=== PATIENT | female | born 1975 | race Caucasian/White ===

== ENCOUNTER 2025-01-28 12:15 | Outpatient (CLI) | payer BC, SELFPAY ==
--- NOTE | ~2025-01-28 | MM_ITS ---
EXAMINATION: MM screening сергей BI w dennis HISTORY: Screening TECHNIQUE: Craniocaudal and mediolateral oblique 3-D tomosynthesis images were obtained and synthetic 2-D images were generated. CAD analysis was submitted and interpreted. COMPARISON: No prior mammogram is available for comparison at this institution. BREAST PARENCHYMAL COMPOSITION: Not dense: There are scattered areas of fibroglandular density. FINDINGS: There are 2 adjacent low-density masses in the upper outer quadrant of the right breast, middle third, likely benign. Recommend comparison to previous outside mammograms. There are no suspicious calcifications or architectural distortion. IMPRESSION: 1. Right breast masses, upper outer quadrant. 2. Recommend comparison to outside mammograms. BI-RADS Category 0: Incomplete: Needs additional imaging evaluation. Reviewed, dictated and finalized at location B.
--- OUTSIDE RECORDS SUMMARY | 2025-01-28 12:19 | XMS_ITS | Clinical Summary ---
Author Organization [facility] Address [address] [place] [address] Phone Care Team Providers Care Director Of Adult Epilepsy Name Role Phone Canelo Wilton Lay DO Primary Care Provider [phone] Allergies Active Allergy Reactions Criticality Noted Date Comments Sulfa (Sulfonamide Antibiotics) Itching Low 02/26 Medications acetaminophen (TYLENOL) 325 mg tablet Take 2 Tablets (650 mg) by mouth every 6 hours as needed for Other (See Comment) (See admin instructions). 4 Active magnesium oxide 400 mg magnesium Tablet Take 1 Tablet by mouth daily. 4 Active Additional Information Patient not taking.Reported on 11/12/2024 losartan (COZAAR) 25 mg tablet Take 1 Tablet (25 mg) by mouth daily. 100 Tablet 3 4 Active meclizine (ANTIVERT) 25 mg tablet Take 1 Tablet (25 mg) by mouth 3 times daily as needed for Dizziness. 30 Tablet 4 Active Additional Information Patient not taking.Reported on 11/12/2024 nicotine polacrilex (Nicorette) 4 mg lozenge, miniIndications :Tobacco abuse 1 Lozenge (4 mg) by Mouth/Throat route every 2 hours as needed for Smoking Cessation. 135 Lozenge 2 4 Active Additional Information Patient not taking.Reported on 11/12/2024 atomoxetine (STRATTERA) 40 mg capsule 5 Active HYDROcodone-husam taminophen (NORCO) 5-325 mg tabletIndicatio ns:LUQ abdominal pain Take 1 Tablet by mouth every 4 hours as needed for Pain. Max Daily Amount: 6 Tablets 8 Tablet Active Additional Information Patient not taking.Reported on 11/12/2024 Active Problems Problem Noted Date Diagnosed Date Back pain without radiation 03/04/2024 Post-operative pain 03/03/2024 RLQ abdominal pain 03/03/2024 Abdominal wall seroma 03/02/2024 Cigarette smoker 02/16/2024 EUSEBIA (generalized anxiety disorder) 02/16/2024 Ventral hernia without obstruction or gangrene 1 Essential hypertension 10/23/2023 Hypercholesteremia 10/23/2023 Pulmonary nodule 10/23/2023 Current mild episode of major depressive disorde r 10/23/2023 Morbid obesity with body mass index of 40.0-49.9 10/06/2023 Vertigo 10/06/2023 Blurry vision 10/06/2023 Chest tightness 10/06/2023 Vitamin D deficiency 03/17/2018 Vitamin B deficiency 03/17/2018 Tobacco use 03/09/2018 Snoring 03/09/2018 Resolved Problems Problem Noted Date Diagnosed Date Resolved Date HTN (hypertension), benign 10/06/2023 0 10/23/2023 Moderate episode of recurren t major depressive disorder 10/16/2020 10/23/2023 Elevated LDL cholesterol level 03/17/2018 10/23/2023 Encounters Date Type Department Care Team Description 01/04/2025 External Device Data [facility] Provider, Abstract 01/04/2025 External Device Data [facility] Provider, Abstract 01/04/2025 External Device Data [facility] Provider, Abstract 12/28/2024 External Device Data [facility] Provider, Abstract 12/07/2024 External Device Data [facility] Provider, Abstract 12/07/2024 External Device Data [facility] Provider, Abstract 12/07/2024 External Device Data [facility] Provider, Abstract 11/16/2024 External Device Data [facility] Provider, Abstract 11/16/2024 External Device Data [facility] Provider, Abstract 11/16/2024 External Device Data [facility] Provider, Abstract 11/12/2024 11:30 AM CDT Video Visit [facility] Primary Care Duane Rosario [address] [place] [address] Wilton Lemos, Abdominal pain, chronic, left upper quadrant (Primary Dx); History of hernia repair; Morbid obesity with body mass index of 40.0-49.9 (CMS/HCC); Hypercholesteremia 11/11/2024 8:14 PM CDT - 11/11/2024 11:52 PM CDT Emergency [facility] Emergency Department [address] [place] [id number] Haroldo Kan IV, DO LUQ abdominal pain (Primary Dx) Discharge Disposition: Home or Self Care 11/11/2024 4:30 PM CDT Office Visit [facility] Primary Care Duane Rosario [address] [place] [address] Wilton Lemos, DO LUQ abdominal pain (Primary Dx); Morbid obesity with body mass index of 40.0-49.9 (CMS/HCC); Poor concentration 11/11/2024 Travel 11/10/2024 External Device Data [facility] Provider, Abstract 11/10/2024 External Device Data [facility] Provider, Abstract 11/10/2024 External Device Data [facility] Provider, Abstract 11/09/2024 External Device Data [facility] Provider, Abstract from Last 3 Months Immunizations Immunization Administration Dates Next Due (ADACEL/BOOSTRIX)(10 YR UP) TDAP VACCINE, 0.5ML, IM 03/09/2018 (M-M-R II/PRIORIX)(12 MO UP) MEASLES, MUMPS AND RUBELLA VIRUS VACCINE, 0.5 ML IM/SUBCUT 05/19/1978 (TDVAX)(7 YRS UP) TETANUS AN D DIPHTHERIA TOXOIDS, ADSORBED (2 LF OF TETANUS TOXOID AND 2 LF OF DIPHTHERIA TOXOID), 0.5ML (PF), IM 09/24/2005,02/21/1992 (TWINRIX)(18 YRS UP) HEPATIT IS A AND HEPATITIS B VACCINE ADULT, 1 ML, IM 12/08/2006,09/24/2005 DTP IM 08/27/1979, 8,05/22/1977,1976 Influenza A (H1N1) Vaccine IM 03/17/2009 Influenza Vaccine Quad Split 3+ Yrs Im 03/09/2018 Poliovirus Vaccine Live Oral 08/27/1979, 03/11/1978,05/22/1977,1976 Family History Medical History Relation Name Comments Hypertension Father Heart Disease Maternal Grandmother Stroke Maternal Grandmother age 48 Hypertension Mother Heart Disease Sister 1 SVT Other Sister 1 meiners No Known Problems Sister 2 Relation Name Status Comments Father Alive Maternal Grandmother Mother Alive Sister 1 Alive Sister 2 Alive Social History Tobacco Use Types Packs/Day Years Used Date Smoking Tobacco: Every Day Cigarettes 2 20 Tobacco Cessation:Ready to Q uit: Not Asked; Counseling Given: Not Answered Alcohol Use Standard Drinks/Week Comments Never 0 (1 standard drink = 0.6 oz pur e alcohol) Feeling Safe Answer Date Recorded Are you in a relationship wi th someone who hurts you emotionally and/or physically? No 11/11/2024 Food Insecurity Answer Date Recorded Patient needs follow up regardin 08/29/2024 Transportation Needs Answer Date Record ed Patient needs follow up regardin 08/29/2024 Housing Stability Answer Date Recorded Social/Environmental Concerns No concerns Utility Needs Answer Date Recorded Patient needs follow up regardin 08/29/2024 Education Answer Date Recorded What is the highest level of school you have completed or the highest degree you have received? 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 Not on file Not on file Not on file Last Filed Vital Signs Vital Sign Reading Time Taken Comments Blood Pressure 120/68 11/11/2024 11:00 PM CDT Pulse 66 11/11/2024 11:00 PM CDT Temperature 36.8 C (98.3 F) 11/11/2024 11:00 PM CDT Respiratory Rate 14 11/11/2024 5:33 PM CDT Oxygen Saturation 93% 11/11/2024 11: 00 PM CDT Inhaled Oxygen Concentration - - Weight 140.5 kg (309 lb 12.8 oz) 11/11/2024 5:33 PM CDT Height 170.2 cm (5' 7) 11/11/2024 5:33 PM CDT Body Mass Index 48.52 11/11/2024 5:33 PM CDT Plan of Treatment Health Maintenance Due Date Last Done Comments HPV/Cotest (21-29) 1997 HPV/Cotest (30-65) 2006 PAP SMEAR 2006 HEPATITIS B VACCINES (3 of 3 - Hep B Twinrix 3-dose series) 05/10/2007 12/08/2006, 09/24/2005 COLORECTAL SCREENING 2021 FIT-DNA Q 3 years 2021 FIT/FOBT Q 1 year 2021 Flex Sig/CT Colonography Q 5 years 2021 Preventative Visit- Commercial 04/28/2024 03/09/2018 INFLUENZA VACCINE (#1) 2024 03/09/2018 BREAST CANCER SCREENING 02/10/2025 11/28/19 22, 11/27/2021, 10/20/2021, Additional history exists Postponed from 11/27/2022 (Patient Refused) CERVICAL CANCER SCREENING 04/14/2025 Po stponed from 1997 (Patient Refused) Colorectal Cancer Screening 11/12/2025 Postponed from 2021 (Patient Refused) Pre-Diabetes and Diabetes Screening 10/05/2026 10/06/2023 DTAP/TDAP/TD VACCINES (7 - Td or Tdap) 03/09/2028 03/09/2018, 09/24/2005, 02/21/1992, Additional history exists Procedures Procedure Name Priority Date/Time Associated Diagnosis Comments TROPONIN 2 HR, 5TH GEN Timed Study 11/11/2024 10:14 PM CDT EKG 12-LEAD Stat 11/11/2024 9:[address] ABDOMEN PELVIS W CONTRAST Stat 11/11/2024 8:51 PM CDT TROPONIN BASELINE, 5TH GEN Stat 11/11/2024 7:26 PM CDT LIPASE Stat 11/11/2024 7:26 PM CDT COMPREHENSIVE METABOLIC PANEL Stat 11/11/2024 7:26 PM CDT CBC WITH DIFFERENTIAL Stat 11/11/2024 7:26 PM CDT HCG QUALITATIVE, URINE Stat 11/11/2024 6:13 PM CDT URINALYSIS W/REFLEX MICROSCOPIC Stat 11/11/2024 6:13 PM CDT HEMOGLOBIN A1C Routine 10/06/2023 12:54 PM CDT MAMMO DIAGNOSTIC UNI RIGHT W OR WO CAD Routine 11/27/2021 Mass of right breast, unspecified quadrant Abnormal mammogram from Last 3 Months or Most Recently Relevant to Health Maintenance Results * TROPONIN 2 HR, 5TH GEN (11/11/2024 10:14 PM CDT) TROPONIN T, 2 HR 5TH GEN 8 <=10 ng/L 11/11/2024 10:53 PM CDT [facility] Blood Venipuncture / Unknown 11/11/2024 10:14 PM CDT 11/11/2024 10:21 PM CDT Narrative [facility] - 11/11/2024 10:53 PM CDT Troponin Detectable but normal range. Delay in collection of timed specimen beyond recommended collection interval. Results must be interpreted in clinical context. Unable to calculate delta. Haroldo Kan IV, DO CHEMISTRY ORDERAB LES Final Result [facility] CLIA# [id number] 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1975 Requested By: HAROLDO WHITTAKER Order Number: [id number] Reading BEBE La Measurements Intervals Marsing Rate: 72 P: 23 AL: 155 QRS: 58 QRSD: 106 T: 42 QT: 412 QTc: 451 Interpretive Statements Sinus rhythm Electronically Signed On 11-12-2024 9:00:24 CDT by Mikael La Procedure Note Mikael La MD - 11/12/2024 [facility] [address] [place] [address] Test Date: 2024-11-11 Pat Name: WES ROCHA Department: 40 Room: [place] [address] 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: Female 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1975 Requested By: HAROLDO WHITTAKER Order Number: [id number] Reading BEBE La Measurements Intervals Marsing Rate: 72 P: 23 AL: 155 QRS: 58 QRSD: 106 T: 42 QT: 412 QTc: 451 Interpretive Statements Sinus rhythm Electronically Signed On 11-12-2024 9:00:24 CDT by Mikael La us Haroldo Kan IV, DO ECG ORDERABLES F inal Result INTERFACE SYSTEM Refer to clinic/hospital department * CT ABDOMEN PELVIS W CONTRAST (11/11/2024 8:51 PM CDT) Anatomical Region Laterality Modality Abdomen Computed Tomogra phy 11/11/2024 8:45 PM CDT Impressions 11/11/2024 9:35 PM CDT IMPRESSION: No acute inflammatory change or obstruction. Hepatic steatosis. 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 DICTATION LOCATION: Location 1 - [facility] Narrative 11/11/2024 9:[address] ABDOMEN AND PELVIS WITH IV CONTRAST INCLUDING MULTIPLANAR RECONSTRUCTIONS DATE: 11/11/2024 8:51 PM HISTORY: Abdominal pain, acute, nonlocalized. COMPARISON: None. PROCEDURE: Spiral volumetric acquisition of the abdomen and pelvis was performed with intravenous contrast. Gastrointestinal contrast was not administered. Sagittal and coronal reconstructions were performed. The examination was performed with the adjustment of mA according to the patient size and/or the use of Iterative Reconstruction Technique. CONTRAST: IOPAMIDOL 61 % INTRAVENOUS SOLUTION (MULTI-DOSE BULK PACK) Given:90 mL FINDINGS: LOWER CHEST: Within normal limits. LIVER: Hepatic steatosis. GALLBLADDER: Cholecystectomy. BILE DUCTS: Within normal limits. PANCREAS: Within normal limits. SPLEEN: Within normal limits. ADRENALS: Within normal limits. KIDNEYS/URETERS: Within normal limits. VASCULATURE: Normal caliber abdominal aorta. Mild atherosclerotic vascular calcification. BOWEL: No bowel obstruction or wall thickening. The appendix is within normal limits. PERITONEUM/RETROPERITONEUM: No pathologic lymphadenopathy or ascites. REPRODUCTIVE ORGANS: 4.4 cm heterogeneously enhancing lesion within the left uterine fundus most suggestive of a leiomyoma. BLADDER: Within normal limits. ABDOMINAL WALL: Findings suggesting previous ventral supraumbilical abdominal wall hernia repair. Small periumbilical hernia containing only fat. BONES: No suspicious focal osseous lesions. Procedure Note Madhavi Alvarado MD - 11/11/2024 CT ABDOMEN AND PELVIS WITH IV CONTRAST INCLUDING MULTIPLANAR RECONSTRUCTIONS DATE: 11/11/2024 8:51 PM HISTORY: Abdominal pain, acute, nonlocalized. COMPARISON: None. PROCEDURE: Spiral volumetric acquisition of the abdomen and pelvis was performed with intravenous contrast. Gastrointestinal contrast was not administered. Sagittal and coronal reconstructions were performed. The examination was performed with the adjustment of mA according to the patient size and/or the use of Iterative Reconstruction Technique. CONTRAST: IOPAMIDOL 61 % INTRAVENOUS SOLUTION (MULTI-DOSE BULK PACK) Given:90 mL FINDINGS: LOWER CHEST: Within normal limits. LIVER: Hepatic steatosis. GALLBLADDER: Cholecystectomy. BILE DUCTS: Within normal limits. PANCREAS: Within normal limits. SPLEEN: Within normal limits. ADRENALS: Within normal limits. KIDNEYS/URETERS: Within normal limits. VASCULATURE: Normal caliber abdominal aorta. Mild atherosclerotic vascular calcification. BOWEL: No bowel obstruction or wall thickening. The appendix is within normal limits. PERITONEUM/RETROPERITONEUM: No pathologic lymphadenopathy or ascites. REPRODUCTIVE ORGANS: 4.4 cm heterogeneously enhancing lesion within the left uterine fundus most suggestive of a leiomyoma. BLADDER: Within normal limits. ABDOMINAL WALL: Findings suggesting previous ventral supraumbilical abdominal wall hernia repair. Small periumbilical hernia containing only fat. BONES: No suspicious focal osseous lesions. IMPRESSION: No acute inflammatory change or obstruction. Hepatic steatosis. 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 DICTATION LOCATION: Location 1 - [facility] Blayne Wren MD CT ORDERABLES F inal Result * TROPONIN BASELINE, 5TH GEN (11/11/2024 7:26 PM CDT) Pathologist [facility] TROPONIN T, BASELINE 5TH GEN <6 <=10 ng/L 11/11/2024 9:23 PM CDT [facility] Blood Venipuncture / Unknown 11/11/2024 7:26 PM CDT 11/11/2024 7:30 PM CDT Narrative [facility] - 11/11/2024 9:23 PM CDT Troponin Undetectable Haroldo Kan IV, DO CHEMISTRY ORDERAB LES Final Result [facility] [email or web address] [facility]# [id number] [address] [place] [address] * (ABNORMAL) CBC WITH DIFFERENTIAL (11/11/2024 7:26 PM CDT) Pathologist [facility] WBC 9.4 4.0 - 9.8 K/uL 11/11/2024 7:50 PM CDT [facility] RBC 4.32 3.90 - 4.90 M/uL 11/11/2024 7:50 PM CDT [facility] HEMOGLOBIN 13.1 11.8 - 14.8 g/dL 11/11/2024 7:50 PM CDT [facility] HEMATOCRIT 39.0 35.5 - 44.0 % 11/11/2024 7:50 PM CDT [facility] MCV 90.3 82.0 - 99.0 fL 11/11/2024 7:50 PM CDT [facility] MCH 30.3 27.2 - 32.6 pg 11/11/2024 7:50 PM CDT [facility] MCHC 33.6 31.5 - 35.5 g/dL 11/11/2024 7:50 PM CDT [facility] RDW 13.0 11.5 - 14.5 % 11/11/2024 7:50 PM CDT [facility] RDW-STDEV 42.7 37.1 - 48.7 fL 11/11/2024 7:50 PM CDT [facility] PLATELETS 305 140 - 350 K/uL 11/11/2024 7:50 PM CDT [facility] MPV 9.0(L) 9.3 - 12.4 fL 11/11/2024 7:50 PM CDT [facility] NEUTROPHILS 59 % 11/11/2024 7:50 PM CDT [facility] LYMPHOCYTES 31 % 11/11/2024 7:50 PM CDT [facility] - . [facility] MONOCYTES 7 % 11/11/2024 7:50 PM CDT [facility] - . [facility] EOSINOPHILS 2 % 11/11/2024 7:50 PM CDT [facility] BASOPHILS 1 % 11/11/2024 7:50 PM CDT [facility] IMMATURE GRANULOCYTES 0 % 11/11/2024 7:50 PM CDT [facility] - . [facility] NEUTROPHIL ABSOLUTE 5.52 1.90 - 7.00 K/uL 11/11/2024 7:50 PM CDT [facility] LYMPHOCYTE ABSOLUTE 2.94 0.70 - 4.50 K/uL 11/11/2024 7:50 PM CDT [facility] MONOCYTE ABSOLUTE 0.64 0.10 - 1.30 K/uL 11/11/2024 7:50 PM CDT [facility] EOSINOPHIL ABSOLUTE 0.17 0.00 - 0.70 K/uL 11/11/2024 7:50 PM CDT [facility] BASOPHILS ABSOLUTE 0.06 0.00 - 0.20 K/uL 11/11/2024 7:50 PM CDT [facility] - [facility] IMMATURE GRANULOCYTES ABSOLUTE 0.03 0.00 - 0.03 K/uL 11/11/2024 7:50 PM CDT [facility] SERVICES - [facility] Blood Venipuncture / Unknown 11/11/2024 7:26 PM CDT 11/11/2024 7:30 PM CDT Blayne Wren MD HEMATOLOGY ORDERA BLES Final Result [facility]ATORY SERVICES [facility] CLIA# [id number] [address] [place] [address] * LIPASE (11/11/2024 7:26 PM CDT) LIPASE 59 13 - 60 U/L 11/11/2024 8:12 PM CDT [facility]ORY SERVICES - [facility] Blood Venipuncture / Unknown 11/11/2024 7:26 PM CDT 11/11/2024 7:30 PM CDT Blayne Wren MD CHEMISTRY ORDERAB LES Final Result Performing Organization Address City/[facility] [address]/ZIP Co de Phone Number [facility] CLIA# [id number] [address] [place] [address] * (ABNORMAL) COMPREHENSIVE METABOLIC PANEL (11/11/2024 7:26 PM CDT) SODIUM 137 136 - 145 mmol/L 11/11/2024 8:12 PM CDT [facility] - [facility] POTASSIUM 4.1 3.5 - 5.0 mmol/L 11/11/2024 8:12 PM CDT [facility] SERVICES - . [facility] CHLORIDE 104 98 - 107 mmol/L 11/11/2024 8:12 PM CDT [facility]ATORY SERVICES - . [facility] CO2 23 22 - 29 mmol/L 11/11/2024 8:12 PM CDT [employer] [facility] - [facility] CALCIUM 9.8 8.6 - 10.2 mg/dL 11/11/2024 8:12 PM [facility] BUN 12 6 - 20 mg/dL 11/11/2024 8:12 PM [facility] CREATININE 0.75 0.51 - 0.95 mg/dL 11/11/2024 8:12 PM [facility] GLUCOSE 116(H) 74 - 99 mg/dL 11/11/2024 8:12 PM [facility] TOTAL PROTEIN 7.2 6.7 - 8.6 g/dL 11/11/2024 8:12 PM [facility] ALBUMIN 4.0 3.5 - 5.2 g/dL 11/11/2024 8:12 PM [facility] BILIRUBIN TOTAL 0.2 0.0 - 1.2 mg/dL 11/11/2024 8:12 PM [facility] ALKALINE PHOSPHATASE 101 35 - 104 U/L 11/11/2024 8:12 PM [facility] AST 23 <33 U/L 11/11/2024 8:12 PM [facility] Comment:Hemolysis present. R esult may be falsely elevated. ALT 20 <34 U/L 11/11/2024 8:12 PM [facility] GFR >60 >=60 mL/min/1.7 3 sq meter 11/11/2024 8:12 PM [facility] Comment:eGFR calculated with 2020 CKD-EPI equation. Vegetarian diet, extremely high or low muscle mass, and may affect results. Cystatin C with Glomerular Filtration Rate is a suitable alternative for these patients. ANION GAP 10 8 - 16 mmol/L 11/11/2024 8:12 PM [facility] Blood Venipuncture / Unknown 11/11/2024 7:26 PM CDT 11/11/2024 7:30 PM [facility]ATORY [facility] - 11/11/2024 8:12 PM CDT Samples containing indocyanine green cause interferences on Total and/or Direct Bilirubin and must not be measured. Blayne Wren MD CHEMISTRY ORDERAB LES Final Result [facility]ORY SERVICES - [facility] CLALBERT# [id number] [address] [place] [address] * (ABNORMAL) URINALYSIS WITH REFLEX MICROSCOPIC (11/11/2024 6:13 PM CDT) COLOR UA Yellow Pale to Dark Yellow 11/11/2024 6:46 PM CDT [facility] - . [facility] CLARITY UA Slightly Cloudy(A) Clear 11/11/2024 6:46 PM CDT [facility] - [facility] SPECIFIC GRAVITY UA 1.013 1.003 - 1.035 11/11/2024 6:46 PM CDT [facility] - [facility] PH UA 6.0 5.0 - 8.0 11/11/2024 6:46 PM CDT [facility]ORY SERVICES - . [facility] LEUKOCYTE ESTERASE UA Negative Negative 11/11/2024 6:46 PM CDT [facility] SERVICES - . [facility] NITRITE UA Negative Negative 11/11/2024 6:46 PM CDT [facility] SERVICES - . [facility] PROTEIN UA Negative Negative 11/11/2024 6:46 PM CDT [facility] - . [facility] GLUCOSE UA Negative Negative 11/11/2024 6:46 PM CDT [facility]ORY SERVICES - . [facility] KETONES UA Negative Negative 11/11/2024 6:46 PM CDT [facility] SERVICES - . [facility] UROBILINOGEN UA Normal <2.0 mg/dL 6:46 PM CDT [facility] SERVICES - . [facility] BILIRUBIN UA Negative Negative 11/11/2024 6:46 PM CDT [facility] SERVICES - . [facility] BLOOD UA Negative Negative 11/11/2024 6:46 PM CDT [facility] SERVICES - . [facility] WBC UA 0-2 0 - 2 /hpf 11/11/2024 6:46 PM CDT [facility]ORY SERVICES - . [facility] RBC UA 0-2 0 - 2 /hpf 11/11/2024 6:46 PM CDT [facility] LAB[facility]ATORY SERVICES - [facility] BACTERIA UA Negative Negative /hpf 11/11/2024 6:46 PM CDT [facility] LAB[facility]ATORY [facility] - [facility] EPITHELIAL CELLS, URINE 0-5 0 - 5 /hpf 11/11/2024 6:46 PM CDT [facility]ATORY SERVICES - [facility] Urine URINE SPECIMEN OBTAINED BY CLEAN CATCH PROCEDURE / Unknown Collection / Unknown 11/11/2024 6:13 PM CDT 11/11/2024 6:28 PM CDT Haroldo Kan IV, DO URINE ORDERABLES Final Result [facility] [email or web address] [facility] CLIA# [id number] [address] [place] [address] * HCG QUALITATIVE, URINE (11/11/2024 6:13 PM CDT) HCG QUAL URINE Negative Negative 11/11/2024 6:43 PM CDT [facility] COLOR UA Yellow Pale to Dark Yellow 11/11/2024 6:43 PM CDT [facility] CLARITY UA Clear Clear 11/11/2024 6:43 PM CDT [facility] Urine URINE SPECIMEN OBTAINED BY CLEAN CATCH PROCEDURE / Unknown Collection / Unknown 11/11/2024 6:13 PM CDT 11/11/2024 6:28 PM CDT Haroldo Kan IV, DO URINE ORDERABLES Final Result [facility] [email or web address] [facility] CLIA# [id number] [address] [place] [address] * HEMOGLOBIN A1C (10/06/2023 12:54 PM CDT) HEMOGLOBIN A1C 5.5 <5.7 % 10/06/2023 8:20 PM CDT [employer] [facility] EST. AVG GLUCOSE, A1C 111 mg/dL 10/06/2023 8:20 PM CDT [facility] LABORATORY [facility] Blood Venipuncture / Unknown 10/06/2023 12:54 PM CDT 10/06/2023 1:01 PM CDT Narrative [facility] LABORATORY [facility] - 10/06/2023 8:20 PM CDT HGB A1C INTERPRETATION NORMAL: <5.7% PRE-DIABETES: 5.7 - 6.4% DIABETES: 6.5% OR GREATER us Dustin Menchaca MD CHEMISTRY ORDERABLES Final Resul t [facility] LABORATORY [facility] CLIA# [id number] [address] [place] [address] * MAMMO DIAGNOSTIC UNI RIGHT W OR WO CAD (11/27/2021) Anatomical Region Laterality Modality Breast Right Mammography us Wilton Lemos DO MAMMO ORDERABLES Final Result from Last 3 Months or Most Recently Relevant to Health Maintenance Insurance [facility] BLUE ACCESS/TRUE BLUE PPO Advance Directives For more information, please contact: [phone] * Full Code (Latest Code Status on File) Date Activated Date Inactivated Comments 10/06/2023 7:58 PM 10/09/2023 11:24 AM Care Teams Director Of Adult Epilepsy Relationship Specialty Start Date End Date Wilton Lemos DO PCP - General Family Practice 03/09/18
--- OUTSIDE RECORDS SUMMARY | 2025-01-28 12:19 | XMS_ITS | Encounter Summary ---
Author Organization [facility] Address [address] [place] [address] Care Team Providers Care Facilities Planner Name Role Phone Wilton Lemos DO Primary Care Provider [phone] Encounter Details Date Type Department Care Team (Late st Contact Info) Description 02/16/2024 Telephone [facility] Family Medicine - [address] [place] [address] Wilton Lemos, [address] [place] [address] Social History Tobacco Use Types Packs/Day Years Used Date Smoking Tobacco: Every Day Cigarettes 2 20 Alcohol Use Standard Drinks/Week Comments Never 0 (1 standard drink = 0.6 oz pur e alcohol) Feeling Safe Answer Date Recorded Are you in a relationship wi th someone who hurts you emotionally and/or physically? 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 Pt states she spoke with casper yesterday. Had hernia surgery yesterday. States she went to ER for pain. [facility] * Telephone Encounter - Debbie Craig - 02/16/2024 3:25 PM CDT Copied from [facility] #[id number]. Topic: Patient or Caregiver Communication Request >> Feb 16, 2024 3:24 PM Debbie Brooke wrote: Patient or Caregiver requesting that a message be sent to Care Team Caller: Marcial Kolb Patient/Caregiver Callback Number: [phone] (home) Call Notes: Patient did not want to speak with Patient environmental marketing representative and insisted on being transferredto the office. Patient was transferred to the back line. documented in this encounter Plan of Treatment Not on file documented as of this encounter Visit Diagnoses Not on filedocumented in this encounter Additional Health Concerns Assessment Noted Time PHQ-9 Depression Total Score: 1 10/07/19 24 11:00 AM CDT documented as of this encounter Care Teams Facilities Planner Relationship Specialty Start Date End Date Wilton Lemos DO PCP - General Family Practice 03/09/18 documented as of this encounter
--- OUTSIDE RECORDS SUMMARY | 2025-01-28 12:20 | XMS_ITS | Clinical Summary ---
Author Organization [facility] Address [facility] [facility] [place] [address] Care Team Providers Care Field Representatives Director Name Role Phone Unknown, Provider Primary Care Provider Unavaila ble Source Comments [facility],non-owned Affiliates and Associated Physician Practices is amultiple site organization consisting of ambulatory clinics and hospital sitesin [place], [place], [place] and [place]. This disclosure is being madepursuant to the Care Everywhere program and may not contain all information available regarding this patient. Last updated 18.[facility] Allergies Active Allergy Reactions Criticality Noted Date Comments Sulfa Drugs Itching Low 03/09/2018 Medications * Be aware that medications may not be up to date on this document. Alwaysverify current medications with the patient. No known medications Active Problems No known active problems Immunizations Immunization Administration Dates Next Due DTaP VACCINE IM (6wk-6yrs) 08/27/1979,,05/22/1977,1976 FLU VACCINE QUAD IIV4 SPLIT 0.25 ML IM 03/09/2018 HEP A/HEP B 12/08/2006,09/24/2005 INFLUENZA A [id number] VACCINE 03/17/2009 MMR 05/19/1978 POLIO OPV 08/27/1979, 8,05/22/1977,1976 TDAP (7yrs+) 03/09/2018 Td (Adult), 2 Lf Tetanus Tox oid, Adsorbed, Pf 09/24/2005,02/21/1992 Social History Tobacco Use Types Packs/Day Years Used Date Smoking Tobacco: Never Assessed Comments Unknown Sex and Gender Information Value Date Recorded Sex Assigned at Not on file Legal Sex 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 Gender Identity Not on file Sexual Orientation Not on file Last Filed Vital Signs Vital Sign Reading Time Taken Comments Blood Pressure 136/85 01/03/2015 8:24 PM CDT Pulse 85 01/03/2015 8:24 PM CDT Temperature 36.6 C (97.9 F) 01/03/2015 8:24 PM CDT Respiratory Rate 16 01/03/2015 8:24 PM CDT Oxygen Saturation 99% 01/03/2015 8:24 PM CDT Inhaled Oxygen Concentration - - Weight 104.3 kg (230 lb) 01/03/2015 8:24 PM CDT Height 177.8 cm (5' 10) 01/03/2015 8:24 PM CDT Body Mass Index 33 01/03/2015 8:24 PM CDT Plan of Treatment Health Maintenance Due Date Last Done Comments COLOGUARD (AGES 45-75) - COLON CA SCREENING 1976 COLON MONITORING 1976 COLONOSCOPY - COLON CA SCREENING 1976 CT COLONOGRAPHY - COLON CA SCREENING 1976 Colorectal Cancer Screening 1976 FIT - COLON CA SCREENING 1976 FLEX SIG - COLON CA SCREENING 1976 LIPID TESTING 1976 HIV SCREENING 12/05/1991 HEPATITIS C SCREENING 11/30/1994 HEPATITIS B VACCINE (3 of 3 - Hep B Twinrix 3-dose series) 05/10/2007 12/08/2006, 09/24/2005 MAMMOGRAM 10/21/2023 10/20/2021 DEPRESSION SCREENING 04/28/2024 COVID-19 VACCINE ( season) 2024 INFLUENZA VACCINE (#1) 2024 03/09/2018, 2008 ZOSTER VACCINE (1 of 2) 2026 DTAP/TDAP/TD VACCINES (7 - Td or Tdap) 03/09/2028 03/09/2018, 09/24/2005, 02/21/1992, Additional history exists HIB VACCINE Aged Out No longer eligi ble based on patient's age to complete this topic HPV VACCINE Aged Out No longer eligi ble based on patient's age to complete this topic MENINGOCOCCAL (Group B) VACCINE SHARED DECISION-MAKING Aged Out No longer eligible based on patient's age to complete this topic MENINGOCOCCAL GROUPS A/C/Y/W VACCINE Aged Out No longer eligible based on patient's age to complete this topic PNEUMOCOCCAL VACCINE Aged Out No long er eligible based on patient's age to complete this topic Insurance ANTH Care Teams Field Representatives Director Relationship Specialty Start Date End Date Unknown, Provider PCP - General 11/07/21
--- OUTSIDE RECORDS SUMMARY | 2025-01-28 12:20 | XMS_ITS | Clinical Summary ---
Author Organization [facility] Address [address] [place] [address] Care Team Providers Care Qc Manager Name Role Phone Evan Lemos DO Primary Care Provider Luis Antonio Becerra MD Unavailable [phone] Allergies Active Allergy Reactions Criticality Noted Date Comments Sulfa (Sulfonamide Antibiotics) Itching Low 02/26 Medications clonazePAM (KlonoPIN) 0.5 mg tablet Take 1 tablet (0.5 mg total) by mouth 2 (two) times a day as needed for anxiety Active FLUoxetine (PROzac) 40 mg capsule Take 1 capsule (40 mg total) by mouth daily Active losartan (COZAAR) 25 mg tablet Take 1 tablet (25 mg total) by mouth daily Active cyclobenzaprine (FLEXERIL) 10 mg tablet Take 1 tablet (10 mg total) by mouth 3 (three) times a day as needed for muscle spasms 30 tablet 03/05/2024 Active ibuprofen (ADVIL,MOTRIN) 600 mg tablet Take 1 tablet (600 mg total) by mouth every 6 (six) hours as needed for pain 30 tablet 03/05/2024 Active acetaminophen (TYLENOL) 325 mg tablet Take 2 tablets (650 mg total) by mouth every 6 (six) hours as needed 10/08/2023 Active escitalopram (LEXAPRO) 10 mg tablet Take 1 tablet (10 mg total) by mouth daily 10/23/2023 Active magnesium oxide 400 mg magnesium tablet Take 1 tablet by mouth daily 10/08/2023 Active nicotine, polacrilex, 4 mg mini lozenge 4 mg every 2 (two) hours as needed 10/23/2023 Active Active Problems Problem Noted Date Diagnosed Date Back pain without radiation 03/04/2024 RLQ abdominal pain 03/03/2024 Post-operative pain 03/03/2024 Abdominal wall seroma, initial encounter 024 Incarcerated hernia 02/17/2024 Ventral hernia without obstruction or gangrene 1 Cigarette smoker 02/16/2024 EUSEBIA (generalized anxiety disorder) 02/16/2024 Incarcerated ventral hernia 02/16/2024 Essential hypertension 10/23/2023 Current mild episode of major depressive disorde r 10/23/2023 Hypercholesteremia 10/23/2023 Pulmonary nodule 10/23/2023 Blurry vision 10/06/2023 Chest tightness 10/06/2023 Morbid obesity with body mass index of 40.0-49.9 10/06/2023 Vertigo 10/06/2023 Vitamin D deficiency 03/17/2018 Snoring 03/09/2018 No pathologic diagnosis 03/08/2013 Overview (07/31/2016): No diagnosis (normal state) Immunizations Immunization Administration Dates Next Due DTP 08/27/1979, 8,05/22/1977,02/19 H1N1 Inj 03/17/2009 Hep A / Hep B 12/08/2006,09/24/2005 Hep B Vaccine 08/01/2008 Influenza, Quadrivalent, Spl it, Intramuscular 03/09/2018 MMR 05/19/1978 OPV 08/27/1979, 8,05/22/1977,02/19 Td, adsorbed 09/24/2005,02/21/1992 Tdap 03/09/2018 Surgical History Surgery Date Site/Laterality Comments SECTION 2002 section CHOLECYSTECTOMY 04/28/2014 - 04/27/2015 LUMBAR PUNCTURE WO INJECTION , DIAGNOSTIC 10/08/2023 N/A Medical History Medical History Date Comments Cholelithiasis Benign essential HTN Family History Medical History Relation Name Comments Stroke Maternal Grandmother Stroke; Relation Name Status Comments Maternal Grandmother Social History Tobacco Use Types Packs/Day Years Used Date Smoking Tobacco: Every Day Cigarettes 2 30 Tobacco Cessation:Ready to Q uit: Not Asked; Counseling Given: Not Answered Comments:Smoking History Packs/day: 1 Packs Alcohol Use Standard Drinks/Week Comments No 0 (1 standard drink = 0.6 oz pur e alcohol) [facility] Utilities Answer Date Recorded In the past 12 months has th e electric, gas, oil, or water company threatened to shut off services in your home? No 02/17/2024 Social Connection and Isolation Panel Answer Date Recorded In a typical week, how many times do you talk on the phone with family, friends, or neighbors? More than three times a week 02/17/2024 How often do you get togethe r with friends or relatives? More than three times a week 02/17/2024 How often do you attend chur ch or hoahaoism services? Never 02/17/2024 Do you belong to any clubs o r organizations such as mandaeism groups, unions, fraternal or athletic groups, or school groups? No 02/17/2024 How often do you attend meet ings of the clubs or organizations you belong to? Never 02/17/2024 Are you , , di vorced, , never , or living with a partner? 02/17/2024 AUDIT-C Answer Date Recorded Q1: How often do you have a drink containing alcohol? Never 02/16/2024 Q2: How many drinks containi ng alcohol do you have on a typical day when you are drinking? Patient does not drink 4 Q3: How often do you have si x or more drinks on one occasion? Never 02/16/2024 Overall Financial Resource Strain (CARDIA) Answe r Date Recorded How hard is it for you to pa y for the very basics like food, housing, medical care, and heating? Not very hard 02/17/2024 Hunger Vital Sign Answer Date Recorded Within the past 12 months, y ou worried that your food would run out before you got the money to buy more. Never true 02/17/20 24 Within the past 12 months, t he food you bought just didn't last and you didn't have money to get more. Never true 02/17/2024 PRAPARE - Transportation Answer Date Re corded In the past 12 months, has l ack of transportation kept you from medical appointments or from getting medications? No 01/27 In the past 12 months, has l ack of transportation kept you from meetings, work, or from getting things needed for daily living? No 02/17/2024 Housing Stability Vital Sign Answer Oren e Recorded In the last 12 months, was t here a time when you were not able to pay the mortgage or rent on time? No 02/17/2024 In the past 12 months, how m any times have you moved where you were living? 0 02/17/2024 At any time in the past 12 m [facility], were you homeless or living in a halfway (including now)? No 02/17/2024 Personal Safety Answer Date Recorded Have you ever been in or are you currently in a harmful physical or emotional relationship or is someone making you feel afraid or unsafe? 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 Gender Identity Not on file Sexual Orientation Not on file Obstetrics History Para Term AB IAB SAB Ectopic Multiple Livin g Live Births 2 2 2 Date Outcome GA Total Labor Labor/2nd/3rd Weight Sex Type Anes PTL Bernice A1 A5 Name Clin Term Term Last Filed Vital Signs Vital Sign Reading Time Taken Comments Blood Pressure 127/84 03/10/2024 10:12 AM COREMAKER BENCH Pulse 75 03/10/2024 10:12 AM COREMAKER BENCH Temperature 36.8 C (98.2 F) 03/10/2024 10:12 AM COREMAKER BENCH Respiratory Rate 16 03/05/2024 4:48 AM COREMAKER BENCH Oxygen Saturation 98% 03/05/2024 4:48 AM COREMAKER BENCH Inhaled Oxygen Concentration - - Weight 132.5 kg (292 lb 3.2 oz) 024 10:12 AM COREMAKER BENCH Height 170.2 cm (5' 7) 03/10/2024 10:1 2 AM COREMAKER BENCH Body Mass Index 45.76 03/10/2024 10:12 AM COREMAKER BENCH Plan of Treatment Health Maintenance Due Date Last Done Comments Cervical Cancer Screening 1976 Colon Cancer Screening-Colonoscopy 1976 Depression Screening 1976 Hepatitis C Screening 1976 Regular Well Visit/Exam 18-64 1994 Pneumococcal vaccine <65 (1 of 2 - PCV) 12/05/1995 Breast Cancer Screening-Mammogram 10/20/2022 022, 10/20/2021 Influenza Vaccine (#1) 2024 03/09/2018 DTaP/Tdap/Td Vaccine (6 - Td or Tdap) 03/09/2028 03/09/2018, 09/24/2005, 02/21/1992, Additional history exists Hepatitis B Screening Completed 08/01/2008 , 12/08/2006, 09/24/2005 Medical Devices Implanted Type Area Automation Qa Tester Device Identifier Shelf Expiration Date Model / Serial / Lot [employer]/C R Bard [address] Sepra Sorbaflex 4.5in Spring Open Bioresorbable Self [id number] - [id number] Implanted:Qty: 1 on 02/16/2024 by Luis Antonio Becerra MD at [facility] Mesh N/A: Abdomen [employer] Bard [id number] 06/25/2025 [id number] / / [id number] Procedures Procedure Name Priority Date/Time Associated Diagnosis Comments SCREENING MAMMOGRAM BILATERAL W NEIL Schedule Routine, Read Routine (OP Routine) 10/20/2021 2:12 PM CDT Screening mammogram, encounter for from Last 3 Months or Most Recently Relevant to Health Maintenance Results * Screening Mammogram Bilateral W Neil (10/20/2021 2:12 PM CDT) Anatomical Region Laterality Modality Breast Bilateral Mammography Narrative 10/24/2021 4:01 PM CDT Mammogram Technique: Bilateral Digital Breast Tomosynthesis, Bilateral C-view 2D Screening mammogram. Views obtained: bilateral craniocaudal and bilateral mediolateral oblique. Computer Aided Detection was performed. Mammogram Findings: This is a baseline study. There are scattered areas of fibroglandular density. There are multiple round masses in the central area of the right breast. There is no suspicious abnormality in the left breast. Impression: Masses in the right breast require additional evaluation. Diagnostic mammogram and possible ultrasound of the right breast are recommended at this time. OVERALL FINAL ASSESSMENT: BI-RADS CATEGORY 0: Incomplete: Need additional imaging evaluation. Procedure Note Crystal Orozco MD - 10/24/2021 Mammogram Technique: Bilateral Digital Breast Tomosynthesis, Bilateral C-view 2D Screening mammogram. Views obtained: bilateral craniocaudal and bilateral mediolateral oblique. Computer Aided Detection was performed. Mammogram Findings: This is a baseline study. There are scattered areas of fibroglandular density. There are multiple round masses in the central area of the right breast. There is no suspicious abnormality in the left breast. Impression: Masses in the right breast require additional evaluation. Diagnostic mammogram and possible ultrasound of the right breast are recommended at this time. OVERALL FINAL ASSESSMENT: BI-RADS CATEGORY 0: Incomplete: Need additional imaging evaluation. us Self Screening Mammogram IMG MAMMO PROCEDURES Fi nal Result from Last 3 Months or Most Recently Relevant to Health Maintenance Insurance [employer] [address] [place] [address] [facility] Advance Directives For more information, please contact: [phone] * Full Code (Latest Code Status on File) Date Activated Date Inactivated Comments 03/02/2024 10:12 PM 03/05/2024 3:49 PM * Full Code Date Activated Date Inactivated Comments 02/16/2024 3:49 PM 02/19/2024 4:44 PM Care Teams Qc Manager Relationship Specialty Start Date End Date Evan Lemos DO [address] [place] [address] [address] [place] [id number] PCP - General 05/09/21 Luis Antonio Becerra MD [address] [place] [address] Consulting Physician General Surgery 02/19/24
== END 2025-01-28 12:16 | disposition home or self-care (01) ==
PROVIDERS: Visit Provider Obstetrics & Gynecology
DX: Z12.31 Encounter for screening mammogram for malignant neoplasm of breast (principal); R92.8 Other abnormal and inconclusive findings on diagnostic imaging of breast
CPT/HCPCS: 77063; 77067

== ENCOUNTER 2025-02-14 13:26 | Outpatient (CLI) | payer BC, SELFPAY ==
--- NOTE | 2025-02-14 13:39 | ECG_ITS ---
Test Date: 2025-02-14 14:02:58 Measurements Intervals [place]as Rate: 78 P: 34 VT: 160 QRS: 48 QRSD: 90 T: 42 QT: 362 QTc: 414 Interpretive Statements SINUS RHYTHM LOW QRS VOLTAGE IN PRECORDIAL LEADS BORDERLINE ECG Electronically Signed On 02-14-2025 14:14:40 CDT by Rolf Schmidt D.O.
[2025-02-14 14:54] LABS: Hematocrit 39.4 % (37.0-47.0); Hemoglobin 13.1 g/dL (12.0-15.0); Immature Granulocyte Percent A 0.1 % (0-0.5); Lymphocytes Absolute Auto 2.28 K/mm3 (0.9-3.2); Mean Corpuscular HGB Conc 33.2 g/dl (32-36); Mean Corpuscular Hemoglobin 30.3 pg (26-34); Mean Corpuscular Volume 91.2 fl (80-100); Nucleated Red Blood Cells Absolute Auto 0.000 K/mm3 (0.0-0.012); Nucleated Red Blood Cells Perc 0.0 % (0.0-0.2); Platelet Count Result 290 k/mm3 (150-375); Red Blood Count 4.32 M/mm3 (4.2-5.4); White Blood Count 6.7 K/mm3 (4.5-10.0)
== END 2025-02-14 13:27 | disposition home or self-care (01) ==
PROVIDERS: Visit Provider Obstetrics & Gynecology
DX: Z01.818 Encounter for other preprocedural examination (principal); R10.20 Pelvic and perineal pain unspecified side; I10 Essential (primary) hypertension
CPT/HCPCS: 36415; 85025; 86850; 86900; 86901; 93005

== ENCOUNTER 2025-02-18 02:07 | Day surgery (SDC) | payer BC, SELFPAY ==
[2025-02-14 11:26] VITALS: BMI 42.8
--- NOTE | 2025-02-14 11:35 | PC.NURSE ---
[facility] has started construction of its new state of the art ER which will open Spring 2026. With this, we anticipate parking may be a challenge for some our surgical patients and families. Parking spaces are limited but are available for all Surgical, obstetrics, and ER patients sharing this lot. If you arrive and find you are having a hard time finding a parking space, please note that we understand the challenges, please drive around the hospital and park near Hospital Entrance 1. When you enter this entrance, you can ask a volunteer to direct or take you back to the surgical waiting area to check in. We appreciate everyone?s understanding of these expected challenges while we build for your future. Report to the Outpatient Waiting Room, entrance under the green pavilion located off [address], at time _0600_ on date _[id number]_. Planned Procedure Time: _0730_.? Time changes happen often and if your time is changed the preop area will call you the afternoon before. - You and your visitor will be asked to self-screen and do not enter if you have any COVID symptoms. Please call surgeon if you need to reschedule. - A mask is optional within the hospital at this time. Patients may have clear liquids (water, carbonated beverages, clear teas, apple juice) until 3 hours prior to surgery with a maximum of 20 ounces. - No food from midnight until time of surgery and no smoking, or chewing tobacco (or any form of nicotine). No chewing gum, candy or mints. Take only the following medications with a SIP of water on the morning of surgery: ___None____ DO NOT STOP ANY OF YOUR OTHER PRESCRIPTION MEDICATIONS PRIOR TO SURGERY EXCEPT THE FOLLOWING Hold all vitamins and supplements for 3 days per anesthesiologist. Medications to discontinue per physician Date to take last dose Please no make-up, nail bahraini, hairspray, perfume, deodorant, or body powder the day of surgery.? No jewelry (including any body piercings) or valuables the day of surgery, leave them at home.? Please take a shower or bath the night before, or the morning of, surgery with an antibacterial soap.? Wear comfortable, loose fitting clothing.? - Jewelry must be removed prior to entering the operating room.? Rings and piercings that are not removed may be cut off. - The hospital will not accept responsibility for valuables.? - Please leave all valuables, including medications, at home the day of surgery. If you are going home after surgery, a licensed taxi driver supervisor must drive you home.? - NO public transportation without another adult if you receive anesthesia. - We recommend that an adult stay with you for 24 hours following discharge. - We also recommend that you do not drive, make important decision, drink alcoholic beverages, or take any drugs that were not prescribed by your health care provider for at least 24 hours after your discharge time. Follow any additional instructions given to you from your surgeon. Telephone instructions given to __Morgan__and asked if any additional questions and then verbalized understanding. Patient advised to call surgeon office or pre surgery nurse liaison [phone] if any additional questions.
--- NOTE | 2025-02-15 07:26 | PM.IMHP ---
H&P: HPI History of Present Illness Date/Time: 02/15/25 07:26 Chief Complaint: Pelvic pain with uterine fibroid resulting in excessive heavy bleeding and dysmenorrhea Narrative: 49-year-old female with symptomatic uterine fibroids for robotic hysterectomy and bilateral salpingectomy. Patient has complained of bleeding pain and discomfort has known fibroids on imaging. Risks and benefits of this procedure reviewed including exclusive of , aspiration pneumonia, bleeding, transfusion, perforation injury to bowel, bladder, ureters, or other internal organs with need for open laparotomy. She received the ACOG handout entitled hysterectomy as well as the de Kristie handout. She had all questions answered. She asked to proceed. Note her Pap did show within normal limits with positive HPV and negative findings on colposcopies Review of Systems Review of Systems: All systems reviewed & are unremarkable except as noted in HPI and below PMFSH Social History Social History Smoking packs per day: 1 Smoking cigarettes per day: 20.0 Years smoked: 30 Smoking pack-years: 30.00 Smoking status: Current every day smoker Tobacco type: cigarettes Living arrangements: with family Spiritual care concerns: No Meds Home Medications and Allergies Home Medications ?Medication ?Instructions ?Recorded ?Confirmed ?Type losartan 25 mg tablet 25 mg PO DAILY 02/14/25 02/14/25 History Allergies Allergy/AdvReac Type Severity Reaction Status Date / Time Sulfa (Sulfonamide Allergy Mild Itching Verified 02/14/25 11:25 Antibiotics) Exam Const: General: cooperative, healthy appearing, comfortable and well groomed Nutritional Appearance: overweight Orientation/consciousness: oriented to person, oriented to place and oriented to time HENMT: Head: normal to inspection Resp: Effort & Inspection: normal respiratory effort Cardio: Rate: regular rate Rhythm: regular rhythm Heart sounds: S1 normal heart sound present and S2 normal heart sound present GI: Inspection: normal to inspection Auscultation: normal bowel sounds : External Female Exam: normal external appearance Speculum Exam - Vagina: normal appearance of the vagina Speculum Exam - Cervix: normal appearance of the cervix Bimanual exam- vagina & uterus: enlarged and Uterine tenderness Bimanual Exam- Adnexa, other: normal adnexae Assessment and Plan Assessment and plan (1) Fibroid: Code(s): D21.9 - Benign neoplasm of connective and other soft tissue, unspecified Status: Acute (2) Menorrhagia: Code(s): N92.0 - Excessive and frequent menstruation with regular cycle Status: Acute (3) Pelvic pain: Code(s): R10.20 - Pelvic and perineal pain unspecified side Status: Acute Plan Proceed with robotics total vaginal hysterectomy and bilateral salpingectomy
[2025-02-18] VITALS (11 sets, daily range): BP systolic 106–147; BP diastolic 60–90; PULSE 57–70; RESP 12–20; TEMP 36.2–36.8; O2SAT 95–100
--- OUTSIDE RECORDS SUMMARY | 2025-02-18 02:10 | XMS_ITS | Encounter Summary ---
Author Organization [facility] Address 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 Pt states she spoke with casper yesterday. Had hernia surgery yesterday. States she went to ER for pain. Pt is at [facility] * Telephone Encounter - Debbie Craig - 02/16/2024 3:25 PM CDT Copied from [facility] #[id number]. 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 Patient was transferred to the back line. documented in this encounter Plan of Treatment Not on file documented as of this encounter Visit Diagnoses Not on filedocumented in this encounter Additional Health Concerns Assessment Noted Time PHQ-9 Depression Total Score: 1 10/07/19 24 11:00 AM CDT documented as of this encounter Care Teams Video Library Assistant Relationship Specialty Start Date End Date Wilton Lemos DO PCP - General Family Practice 03/09/18 documented as of this encounter
--- OUTSIDE RECORDS SUMMARY | 2025-02-18 02:10 | XMS_ITS | Clinical Summary ---
Author Organization [facility] Address [facility] [place] [address] Care Team Providers Care Health Administration Teacher Name Role Phone Unknown, Provider Primary Care Provider Unavaila ble Source Comments [facility],non-owned Affiliates and Associated Physician Practices is amultiple site organization consisting of ambulatory clinics and hospital sitesin [place], [place], [place] and [place]. This disclosure is being madepursuant to the Care Everywhere program and may not contain all information available regarding this patient. Last updated 18.[facility] Allergies Active Allergy Reactions Criticality Noted Date [...] 03/09/2018 HEP A/HEP B 12/08/2006,09/24/2005 INFLUENZA A G4D4-15 VACCINE 03/17/2009 MMR 05/19/1978 POLIO OPV 08/27/1979, 8,05/22/1977,1976 TDAP (7yrs+) 03/09/2018 Td (Adult), 2 Lf Tetanus Tox oid, Adsorbed, Pf 09/24/2005,02/21/1992 Social History Tobacco Use Types Packs/Day Years Used Date Smoking Tobacco: Never Assessed Comments Unknown Sex and Gender Information Value Date Recorded Sex Assigned at Not on file Legal Sex Female 6:20 AM TRAFFIC CHECKER Gender Identity Not on file Sexual Orientation [...] complete this topic Insurance ANTH Care Teams Health Administration Teacher Relationship Specialty Start Date End Date Unknown, Provider PCP - General 11/07/21
--- OUTSIDE RECORDS SUMMARY | 2025-02-18 02:10 | XMS_ITS | Clinical Summary ---
Author Organization [facility] Address [address] [place] [address] Care Team Providers Care Commercial Loan Reviewer Name Role Phone Evan Lemos DO Primary Care Provider Luis Antonio Becerra MD Unavailable [phone] Allergies Active Allergy Reactions Criticality Noted [...] drink = 0.6 oz pur e alcohol) [facility] Utilities Answer Date Recorded In the past [...] often do you attend chur ch or adventism services? Never 02/17/2024 Do you belong to any clubs o r organizations such as confucianist groups, unions, fraternal or athletic groups, or [...] any time in the past 12 [facility], were you homeless or living in a snf (including now)? No 02/17/2024 Personal Safety Answer Date Recorded Have you ever been in or are you currently in a harmful physical or emotional relationship or is someone making you feel afraid or unsafe? Denies 03/02/2024 Comments No Sex and Gender Information Value Date Recorded Sex Assigned at Not on file Legal Sex Female 10:58 AM BOATBUILDER WOOD Gender Identity Not on file Sexual Orientation Not on file Obstetrics History Para Term AB IAB SAB Ectopic Multiple Livin g Live Births 2 2 2 Date Outcome GA Total Labor Labor/2nd/3rd Weight Sex Type Anes PTL Bernice A1 A5 Name Clin Term Term Last Filed Vital Signs Vital Sign Reading Time Taken Comments Blood Pressure 127/84 03/10/2024 10:12 AM BOATBUILDER WOOD Pulse 75 03/10/2024 10:12 AM BOATBUILDER WOOD Temperature 36.8 C (98.2 F) 03/10/2024 10:12 AM BOATBUILDER WOOD Respiratory Rate 16 03/05/2024 4:48 AM BOATBUILDER WOOD Oxygen Saturation 98% 03/05/2024 4:48 AM BOATBUILDER WOOD Inhaled Oxygen Concentration - - Weight 132.5 kg (292 lb 3.2 oz) 024 10:12 AM BOATBUILDER WOOD Height 170.2 cm (5' 7) 03/10/2024 10:1 2 AM BOATBUILDER WOOD Body Mass Index 45.76 03/10/2024 10:12 AM BOATBUILDER WOOD Plan of Treatment Health Maintenance Due Date [...] 12/08/2006, 09/24/2005 Medical Devices Implanted Type Area Salesperson Florist Supplies Device Identifier Shelf Expiration Date Model / Serial / Lot [employer]/C R Bard [address] Sepra Sorbaflex 4.5in Spring Open Bioresorbable Self [id number] - [id number] Implanted:Qty: 1 on 02/16/2024 by Luis Antonio Becerra MD at [facility] Mesh N/A: Abdomen [employer]/C R Bard [id number] 06/25/2025 [id number] / / [id number] Procedures Procedure Name Priority Date/Time Associated Diagnosis [...] Most Recently Relevant to Health Maintenance Insurance [employer] [address] [place] [address] FORMERLY [facility], 1928–1983 Advance Directives For more information, please contact: [phone] * Full Code (Latest Code Status on File) Date Activated Date Inactivated Comments 03/02/2024 10:12 PM 03/05/2024 3:49 PM * Full Code Date Activated Date Inactivated Comments 02/16/2024 3:49 PM 02/19/2024 4:44 PM Care Teams Commercial Loan Reviewer Relationship Specialty Start Date End Date Evan Lemos DO [address] [place] [address] [address] [place] [id number] PCP - General 05/09/21 Luis Antonio Becerra MD [address] [place] [address] Consulting Physician General Surgery 02/19/24
--- OUTSIDE RECORDS SUMMARY | 2025-02-18 02:10 | XMS_ITS | Clinical Summary ---
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 Not on file Not [...] Flex Sig/CT Colonography Q 5 years 2021 BREAST CANCER SCREENING 11/27/2022 11/28/19, 11/27/2021, 10/20/2021, Additional history exists Preventative Visit- Commercial 04/28/2024 03/09/2018 INFLUENZA VACCINE (#1) 2024 03/09/2018 CERVICAL CANCER SCREENING 04/14/2025 Po stponed from 1997 (Patient Refused) Colorectal Cancer Screening 11/12/2025 Postponed from 2021 (Patient Refused) Pre-Diabetes and Diabetes Screening 10/05/2026 10/06/2023 DTAP/TDAP/TD VACCINES (7 - Td or Tdap) 03/09/2028 03/09/2018, 09/24/2005, 02/21/1992, Additional history exists Procedures Procedure Name Priority Date/Time Associated Diagnosis Comments HEMOGLOBIN A1C Routine 10/06/2023 12:54 PM CDT MAMMO DIAGNOSTIC UNI RIGHT W OR WO CAD Routine 11/27/2021 Mass of right breast, unspecified quadrant Abnormal mammogram from Last 3 Months or Most Recently Relevant to Health Maintenance Results * HEMOGLOBIN A1C (10/06/2023 12:54 PM CDT) HEMOGLOBIN A1C 5.5 <5.7 % 10/06/2023 8:20 PM CDT [facility] EST. AVG GLUCOSE, A1C 111 mg/dL 10/06/2023 8:20 PM CDT [facility] Blood Venipuncture / Unknown 10/06/2023 12:54 PM CDT 10/06/2023 1:01 PM CDT Narrative [facility] - 10/06/2023 8:20 PM CDT HGB A1C INTERPRETATION NORMAL: <5.7% PRE-DIABETES: 5.7 - 6.4% DIABETES: 6.5% OR GREATER Dustin Menchaca MD CHEMISTRY ORDERABLES Final Resul t [facility] [employer] [facility] CLIA# [id number] [address] [facility] [address] [place] [place] [address] * MAMMO DIAGNOSTIC UNI RIGHT W OR WO CAD (11/27/2021) Anatomical Region Laterality Modality Breast Right Mammography us Wilton Lemos DO MAMMO ORDERABLES Final Result from Last 3 Months or Most Recently Relevant to Health Maintenance Insurance BC BLUE ACCESS/TRUE BLUE PPO Advance Directives For more information, please contact: [phone] * Full Code (Latest Code Status on File) Date Activated Date Inactivated Comments 10/06/2023 7:58 PM 10/09/2023 11:24 AM Care Teams Felt Strip Finisher Relationship Specialty Start Date End Date Wilton Lemos DO PCP - General Family Practice 03/09/18
[2025-02-18] MEDS: ACETAMINOPHEN 500 MG TABLET 1000 MG PO ×3 (06:31→18:26)
[2025-02-18] MEDS: LACTATED RINGERS 1,000 ML 30 ML IV CONT ×2 (06:40→09:10)
[2025-02-18] MEDS: KETOROLAC 15 MG/ML VIAL (*BKC) IV PUSH (06:42)
--- NOTE | 2025-02-18 06:45 | WPDHPUPDATE1 ---
History and Physical Update Update Date/Time: 02/18/25 06:45 History and Physical has been reviewed, including an updated exam of the patient. There are NO changes in the patient's condition. Risks, benefits, and alternatives have been discussed and questions answered. Patient agrees to proceed with procedure.
[2025-02-18 06:58] LABS: BEDSIDEPREGUCG Negative (Negative)
--- NOTE | 2025-02-18 06:58 | WPDANESEPPF ---
Anes - Initial Pre Proc Eval Procedure: Operation Date: 02/18/25 07:30 Proposed Procedures p Robotic Assisted Total Vaginal Hysterectomy with Bilateral Salpingectomy - Julio C Watters MD Date/Time: 02/18/25 06:58 Surgeon: Julio C Watters MD Pre Op Diagnosis: Irrg Bleed, pelvic pain, Uterine Fibroid, Patient Data Age: 49 Gender: F Height: 1.78 m Weight: 135.8 kg Last Vital Signs Temp 36.2 C L 02/18/25 06:15 Pulse 66 02/18/25 06:15 Resp 20 02/18/25 06:15 BP 143/79 H 02/18/25 06:15 Pulse Ox 99 02/18/25 06:15 O2 Del Method Room Air 02/18/25 06:15 Allergies Allergy/AdvReac Type Severity Reaction Status Date / Time Sulfa (Sulfonamide Allergy Mild Itching Verified 02/18/25 06:45 Antibiotics) Home Medications ?Medication ?Instructions ?Recorded ?Confirmed ?Type losartan 25 mg tablet 25 mg PO DAILY 02/14/25 02/18/25 History hydrocodone 5 mg-acetaminophen 325 1 tablet PO Q4H PRN pain #20 tabs 02/18/25 Rx mg tablet Laboratory Tests 02/18/25 06:20 POC Urine HCG, Qual Pending Patient hx anesthesia problems: none Family hx anesthesia problems: none Results Review: All pre-operative results and documents have been reviewed as part of the pre-operative evaluation. [facility] Past Medical History Medical History (Updated 02/18/25 @ 06:58 by Julio C Del Rio MD) HTN (hypertension) Morbid obesity Social History Social History Smoking packs per day: 1 Smoking cigarettes per day: 20.0 Years smoked: 30 Smoking pack-years: 30.00 Smoking status: Current every day smoker Tobacco type: cigarettes Living arrangements: with family Spiritual care concerns: No Anes - Eval Final PreProcedure Day of Procedure 02/18/25 06:58 Patient weight: morbidly obese Heart: regular rate and rhythm Lungs: clear to auscultation Airway: Mallampati scale class II Neurological: alert and oriented Last oral intake: >/= 8 hours ASA classification: III Emergent: no Anesthetic plan: proceed Anesthesia type and monitoring: general ETT and standard monitoring Results Review: All pre-operative results and documents have been reviewed as part of the pre-operative evaluation. Informed Consent: The patient's anesthetic plan and its attendant risks and benefits were discussed with the patient/family/POA. Questions were solicited and answers provided to the satisfaction of the patient/family/POA.
[2025-02-18] MEDS: SCOPOLAMINE 1 MG PATCH 1 PATCH TRANSDERM (07:04)
[2025-02-18] MEDS: ceFAZolin 3 GM/D5W 100 ML 100 ML IVPB (07:24)
--- NOTE | 2025-02-18 08:34 | S_PTH ---
PATIENT: Marcial Webb LOC: [facility] U#:[id number] AGE/SX: 49/F ROOM: RE02/18/[address]: Julio C Watters MD : 1975 BED: DIS: 02/19/2025 SPEC #: [id number] RECD: 02/18/25 10:13 STATUS: KIMBERLEE REQ #: [id number] REJI: 02/18/25 08:[address]: Julio C Sandy DEPT: [facility] Surgical RECD BY: Pauly Lino Tissues: A - Uterus Procedures: Hematoxylin and Eosin Stain Gross and Microscopic Level 5
--- NOTE | 2025-02-18 08:56 | W.PM.PROC2 ---
Procedure Note - Detailed Date of Procedure 02/18/25 Pre-op Diagnosis Irrg Bleed, pelvic pain, Uterine Fibroid, Post-op Diagnosis Same Procedure Performed Robotic total vaginal hysterectomy bilateral salpingectomy extensive lysis of adhesions Surgeon Julio C Watters MD Anesthesia General Indications 49-year-old female excessive heavy bleeding pelvic pain Findings Enlarged uterus. Normal-appearing ovaries and tubes. Multiple adhesions seen from the omentum to the anterior abdominal wall to the pelvis to the left and right lateral sidewalls Description of Procedure Patient was prepped draped in normal sterile fashion placed in the dorsal lithotomy position. Under excellent general trach anesthesia weighted speculum placed in posterior fornix vagina. Anterior lip of the cervix grasped with single-tooth tenaculum the uterus sounded to 11cm. Serial dilatation with fragmented dilators performed followed by passage of the 10. MIKEL and the 3. 0.5 cold cup. Next the 16 Yoruba catheter was placed in the bladder drained clear urine. The weighted speculum was removed and the gloves were changed. Supraumbilical incision made the Veress needle passed in the abdomen. Abdomen filled with CO2 gas [id number]. The 8mm trocar advanced in the abdomen. Downside visualized no injury seen. Patient placed in Trendelenburg and a marked amount of adhesions were seen right left lateral quadrant incisions made 8mm trocars advanced abdomen without difficulty and injury. Left upper quadrant incision made the 8 trocar advanced under direct visualization for the respiratory therapy assistant port. Multiple adhesions were seen using sharp dissection and cautery with Endo Sugar these were sharply brought down this of took [id number] dissection time in order to be able to see the pelvis. Once this was clear attention was turned to docking the robot. The robot was docked. Attention was turned to the dormitory counselor. The left round ligament grasped, burned, cut. Anterior bladder flap was formed by sharply dissecting the peritoneum and reflecting it caudally away from the cervix and uterus this was done layer by layer was markedly adherent from previous surgery this was brought to the opposite round ligament which was clamped, burned, cut. Next the left fallopian tube was sharply dissected away from the ovarian complex and brought to level of the uterine origin. In similar fashion the right fallopian tube was sharply dissected away from the ovary and left attached to its uterine origin. The left utero-ovarian ligament was skeletonized to conserve the left ovary this was clamped, burned, cut brought to level of previously cut round ligament. Similarly to conserve the ovary on right, was burned, and brought to level of previously cut round ligament. Cardinal broad ligaments on the left were serially skeletonized clamping burning cutting until the large tortuous the vasculature could be seen on left this was individually clamped, burned, cut. In similar fashion the cardinal broad ligaments on the right were serially clamped burned and cut hugging the cervix and uterus until the large uterine vessels could be seen on right these were individually clamped, burned, cut. At that point blanching was noted. Colpotomy incision made the cervix uterus and tubes removed through the vagina. The vagina was then closed with continuous running 0V lock from lateral edge to lateral edge back to midline. Irrigation undertaken until clear hemostasis was assured. The robot was undocked. The gas removed from the abdomen. The incisions closed with 4 Monocryl and glue. The patient went to recovery in satisfactory condition. All sponge, needle, instrument counts were correct. There were no immediate complications Estimated Blood Loss 25 Drains No Packing No Pathology Yes Complications No immediate complications Condition Stable Disposition PACU
--- NOTE | 2025-02-18 09:01 | PM.DS ---
DS: Admitting Diagnosis Discharge Date 02/19/2025 Admitting Diagnosis Menorrhagia/pelvic pain/uterine fibroid DS: Discharge Diagnosis Discharge Diagnosis (1) Menorrhagia: Code(s): N92.0 - Excessive and frequent menstruation with regular cycle Status: Acute (2) Pelvic pain: Code(s): R10.20 - Pelvic and perineal pain unspecified side Status: Acute (3) Fibroid: Code(s): D21.9 - Benign neoplasm of connective and other soft tissue, unspecified Status: Acute DS: Summary Hospital Course Reason for hospitalization: Patient was admitted for robotic total vaginal hysterectomy bilateral salpingectomy with extensive lysis of adhesions on 02/18/2025 Hospital Course: Patient's hospital course unremarkable. She remained afebrile. She was up, voiding without difficulty, eating regular diet, ambulating, and generally without complaints. Time Spent with Patient Time attestation: Total time spent providing and/or coordinating discharge services: Exam Const: General: cooperative, healthy appearing and comfortable Orientation/consciousness: oriented to person, oriented to place and oriented to time HENMT: Head: normal to inspection Resp: Effort & Inspection: normal respiratory effort Cardio: Rate: regular rate Rhythm: regular rhythm Heart sounds: S1 normal heart sound present and S2 normal heart sound present GI: Inspection: normal to inspection and incision (Wounds are clean dry and intact) DS: Data Data Completed and Pending Pending studies at discharge: Pending at discharge 02/18/25 08:34 Surgical [PTH] Routine Labs on day of discharge: Labs from last 24 hours 02/18/25 06:20 POC Urine HCG, Qual Negative Discharge Plan Discharge Patient Disposition: Home Patient Language: Burkinan Stand Alone Forms: General Discharge Instructions Follow-up/Referrals: Julio C Sandy MD [Physician, ENGINEERING GEOLOGIST] Discharge Medications: New hydrocodone-acetaminophen 5-325 mg tablet 1 tablet PO Q4H PRN (Reason: pain) Qty: 20 0RF No Action losartan 25 mg tablet 25 mg PO DAILY
[2025-02-18] MEDS: HYDROmorphone HCL INJ (*CRX) 1 MG/ML SYR 0.5 MG IV PUSH ×2 (09:35→09:45)
[2025-02-18] MEDS: oxyCODONE HCL (*CRX) 5 MG TAB IR 10 MG PO (11:07)
[2025-02-18] MEDS: DEXTROSE 5%/LACTATED RINGERS 1,000 ML 125 ML IV CONT ×2 (11:09→19:34)
[2025-02-18] MEDS: KETOROLAC 30 MG/ML VIAL (*BKC) IV PUSH ×2 (12:32→18:27)
[2025-02-18] MEDS: SIMETHICONE 80 MG TAB.CHEW PO ×2 (12:34→17:11)
--- NOTE | 2025-02-18 12:48 | PC.NURSE ---
Pt arrives to room #289 per bed from OR at 1032 Alert and oriented x3 Belongings transported with pt and family at BS
[2025-02-18] MEDS: MORPHINE SULFATE (*CRX) 4 MG/ML INJ 2 MG IV PUSH ×3 (13:35→21:28)
[2025-02-18] MEDS: LOSARTAN POTASSIUM 25 MG TABLET PO (13:39)
[2025-02-18] MEDS: DOCUSATE SODIUM 100 MG CAPSULE PO ×2 (13:39→18:26)
[2025-02-18] MEDS: PROMETHAZINE HCL 25 MG/ML AMPUL 12.5 MG IV PUSH (17:12)
[2025-02-19] MEDS: ACETAMINOPHEN 500 MG TABLET 1000 MG PO ×2 (00:12→05:15)
[2025-02-19] MEDS: KETOROLAC 30 MG/ML VIAL (*BKC) IV PUSH (00:12)
[2025-02-19 00:14] VITALS: BP 112/53; PULSE 72; RESP 18; TEMP 37.1; O2SAT 97
[2025-02-19 05:08] VITALS: BP 125/64; PULSE 74; RESP 20; TEMP 37.1; O2SAT 98
[2025-02-19 05:10] LABS: Hematocrit 36.5 % (37.0-47.0); Hemoglobin 11.6 g/dL (12.0-15.0); Immature Granulocyte Percent A 0.4 % (0-0.5); Lymphocytes Absolute Auto 1.92 K/mm3 (0.9-3.2); Mean Corpuscular HGB Conc 31.8 g/dl (32-36); Mean Corpuscular Hemoglobin 29.7 pg (26-34); Mean Corpuscular Volume 93.6 fl (80-100); Nucleated Red Blood Cells Absolute Auto 0.000 K/mm3 (0.0-0.012); Nucleated Red Blood Cells Perc 0.0 % (0.0-0.2); Platelet Count Result 235 k/mm3 (150-375); Red Blood Count 3.90 M/mm3 (4.2-5.4); White Blood Count 9.6 K/mm3 (4.5-10.0)
[2025-02-19] MEDS: IBUPROFEN 600 MG TABLET PO (05:15)
--- NOTE | 2025-02-19 06:59 | P.PNOB_ITS ---
[employer] - A/P Assessment and plan (1) Menorrhagia: Code(s): N92.0 - Excessive and frequent menstruation with regular cycle Status: Acute (2) Pelvic pain: Code(s): R10.20 - Pelvic and perineal pain unspecified side Status: Acute (3) Fibroid: Code(s): D21.9 - Benign neoplasm of connective and other soft tissue, unspecified Status: Acute Plan home f/u 2 weeks Postoperative Procedures: Procedures Operation Date: 02/18/25 07:30 Actual Procedure Side Surgeon p Robotic Assisted Total Vaginal Hysterectomy with Bilateral Salpingectomy, Extensive Lysis of Adhesions Bilateral Julio C Watters MD Time Spent With Patient Time: Total time spent is greater than 50% in coordination of care (as documented) at patient's floor/unit and/or counseling patient: Time with patient: 15 - 25 minutes [employer]- PN:Subj Post-Op Subjective Date/time seen: 02/19/25 06:59 Subjective: patient reports feeling better, patient has no complaints, patient desires discharge, pain is well controlled and patient is tolerating oral intake Review of Systems 2 Review of Systems: All systems reviewed & are unremarkable except as noted in HPI and below Exam 2 Const: General: cooperative, healthy appearing and comfortable O rientation/consciousness: oriented to person, oriented to place and oriented to time HENMT: Head: normal to inspection Resp: Effort & Inspection: normal respiratory effort Cardio: Rate: regular rate Rhythm: regular rhythm Heart sounds: S1 normal heart sound present and S2 normal heart sound present GI: Inspection: normal to inspection and incision (Wounds are clean dry and intact) [employer] - PN: Obj Data Vital Signs Vital Signs: Vital Signs - 24 hr 02/18/25 09:10 02/18/25 09:25 02/18/25 09:40 Temperature 97.2 F L Pulse Rate 68 59 L 62 Respiratory Rate 12 15 13 Blood Pressure 106/75 129/65 113/74 Pulse Oximetry 95 97 99 Oxygen Delivery Simple Face Mask Room Air Room Air Oxygen Flow Rate 6 02/18/25 09:55 02/18/25 10:10 02/18/25 10:20 Temperature Pulse Rate 59 L 57 L 58 L Respiratory Rate 12 12 12 Blood Pressure 113/66 122/68 129/72 Pulse Oximetry 99 98 97 Oxygen Delivery Room Air Room Air Room Air Oxygen Flow Rate 02/18/25 10:32 02/18/25 10:32 02/18/25 12:47 Temperature 97.2 F L 97.2 F L 97.9 F Pulse Rate 65 65 58 L Respiratory Rate 18 18 20 Blood Pressure 124/90 124/90 147/64 H Pulse Oximetry 97 97 99 Oxygen Delivery Oxygen Flow Rate 02/18/25 14:00 02/18/25 19:28 02/18/25 19:28 Temperature 98.2 F Pulse Rate 70 65 Respiratory Rate 20 18 Blood Pressure 124/60 114/64 Pulse Oximetry 100 97 Oxygen Delivery Room Air Oxygen Flow Rate 02/19/25 00:14 02/19/25 00:14 02/19/25 05:08 Temperature 98.7 F Pulse Rate 72 Respiratory Rate 18 Blood Pressure 112/53 L Pulse Oximetry 97 Oxygen Delivery Room Air Room Air Oxygen Flow Rate 02/19/25 05:08 Temperature 98.7 F Pulse Rate 74 Respiratory Rate 20 Blood Pressure 125/64 Pulse Oximetry 98 Oxygen Delivery Oxygen Flow Rate Intake/Output Intake/Output: Intake & Output 02/16/25 02/17/25 02/18/25 02/19/25 23:59 23:59 23:59 23:59 Intake Total 2100 550 Output Total 1435 1400 Balance 665 -850 Meds/Results Medications: Active Medications Generic Name Dose Route Start Last Admin Trade Name Songq PRN Reason Stop Dose Admin Acetaminophen 1,000 mg 02/18/25 12:00 02/19/25 05:15 Acetaminophen 500 Mg Tablet PO 1,000 mg Q6HR CHECO Administration Docusate Sodium 100 mg 02/18/25 10:27 02/18/25 18:26 Docusate Sodium 100 Mg Capsule PO 100 mg BID CHECO Administration Enoxaparin Sodium 40 mg 02/18/25 10:27 02/18/25 17:14 Enoxaparin 40 Mg/0.4 Ml Syringe SUB-Q Not Given DAILY CHECO Dextrose/Lactated Ringer's 1,000 mls @ 125 mls/hr 02/18/25 10:27 02/19/25 05:15 Dextrose 5%/Lactated Ringers IV CONT Not Given .Q8H [facility]CO Ibuprofen 600 mg 02/19/25 06:00 02/19/25 05:15 Ibuprofen 600 Mg Tablet PO 600 mg Q6HR CHECO Administration Losartan Potassium 25 mg 02/19/25 09:00 02/18/25 13:39 Losartan Potassium 25 Mg Tablet PO 25 mg DAILY CHECO Administration Morphine Sulfate 2 mg 02/18/25 12:47 02/18/25 21:28 Morphine Sulfate (*Crx) 4 Mg/Ml Inj IV PUSH 2 mg Q2H PRN Administration Pain Rated 7-10 Naloxone HCl 0.1 mg 02/18/25 10:27 Naloxone Hcl 0.4 Mg/Ml Vial IV PUSH Q2M PRN Respiratory rate less than 10 Ondansetron HCl 4 mg 02/18/25 10:27 Ondansetron Inj 4 Mg/2 Ml Vial IV PUSH Q6H PRN Nausea And Vomiting Oxycodone HCl 5 mg 02/18/25 10:27 Oxycodone Hcl (*Crx) 5 Mg Tab Ir PO Q4H PRN Pain Rated 4-6 Oxycodone HCl 10 mg 02/18/25 10:27 02/18/25 11:07 Oxycodone Hcl (*Crx) 5 Mg Tab Ir PO 10 mg Q6H PRN Administration Pain Rated 7-10 Simethicone 80 mg 02/18/25 12:00 02/18/25 17:11 Simethicone 80 Mg Tab.Chew PO 80 mg TIDWM CHECO Administration Labs 02/19/25 05:03 Labs: Laboratory Results - last 24 hr 02/19/25 05:03 WBC 9.6 RBC 3.90 L Hgb 11.6 L Hct 36.5 L MCV 93.6 MCH 29.7 MCHC 31.8 L RDW 13.8 Plt Count 235 MPV 9.5 Immature Gran % (Auto) 0.4 Neut % (Auto) 73.4 H Lymph % (Auto) 19.9 [place] % (Auto) 5.7 Eos % (Auto) 0.3 Baso % (Auto) 0.3 Lymph # (Auto) 1.92 [place] # (Auto) 0.6 Eos # (Auto) 0.0 Baso # (Auto) 0.0 Abs Immat Gran (auto) 0.04 H Absolute Neuts (auto) 7.1 H Absolute Nucleated RBC 0.000 Nucleated RBC % 0.0
[2025-02-19 07:57] VITALS: BP 149/78; PULSE 69; RESP 18; TEMP 36.4; O2SAT 98
[2025-02-19] MEDS: ENOXAPARIN 40 MG/0.4 ML SYRINGE SUB-Q (08:54)
[2025-02-19] MEDS: LOSARTAN POTASSIUM 25 MG TABLET PO (08:54)
[2025-02-19] MEDS: DOCUSATE SODIUM 100 MG CAPSULE PO (08:54)
[2025-02-19] MEDS: SIMETHICONE 80 MG TAB.CHEW PO (08:54)
== END 2025-02-19 09:23 | disposition home or self-care (01) ==
LOC: ANHSURGERY 06:45 → ANHOB2 10:30
PROVIDERS: Visit Provider Obstetrics & Gynecology
PROC: (CPT 58552; principal; 2025-02-18 07:30)
DX: N72 Inflammatory disease of cervix uteri (principal); N88.8 Other specified noninflammatory disorders of cervix uteri; N80.03 Adenomyosis of the uterus; D25.1 Intramural leiomyoma of uterus; N73.6 Female pelvic peritoneal adhesions (postinfective); I10 Essential (primary) hypertension; F17.210 Nicotine dependence, cigarettes, uncomplicated; E66.01 Morbid (severe) obesity due to excess calories; Z68.41 Body mass index [BMI] 40.0-44.9, adult; Z79.891 Long term (current) use of opiate analgesic
CPT/HCPCS: 58552; S2900; 36415; 85025; 88307; 99199; A9270; J0330; J0360; J0690; J1100; J1171; J1650; J1885; J2003; J2250; J2270; J2405; J2550; J2704; J3010; J7030; J7120; J7121